=== PATIENT | female | born 1940 | race Caucasian/White ===

== ENCOUNTER 2017-10-30 14:05 | Emergency (ER) | payer OTHER, MEDICARE ==
[~2017-10-30] VITALS: Ht 165.1 cm; Wt 66.2 kg
[2017-10-30] MEDS ORDERED: PRINIVIL5 M1 PO (14:36)
[2017-10-30] MEDS ORDERED: SIMVASTATIN20 M2 PO (14:36)
[2017-10-30] MEDS ORDERED: TOPROL XL50 M1 PO (14:36)
[2017-10-30] MEDS ORDERED: CLARITIN10 M1 PO (14:37)
--- NOTE | 2017-10-30 15:07 | ED SYNCOPE COMPLAINT ---
History of Present Illness General Chief Complaint: Syncope and Near-Syncope Stated Complaint: BIBA FOR NEAR SYNCOPAL EPISODE Source: patient Exam Limitations: no limitations Allergies Coded Allergies: No Known Allergies (10/30/17) Reconcile Medications Lisinopril (Prinivil) (Unknown Strength) TABLET (Unknown Dose) PO DAILY HEART (Reported) Loratadine (Claritin) 10 MG TABLET 1 TAB PO DAILY ALLERGIES (Reported) Metoprolol Succ XL (Toprol Xl) 50 MG TAB 1 TAB PO DAILY HEART (Reported) Simvastatin (Simvastatin*) (Unknown Strength) TABLET (Unknown Dose) PO QPM CHOLESTEROL (Reported) Triage Note: 77/F BIBA FROM [facility] AFTER PT HAD A NEAR SYNCOPAL EPISODE 30 MINUTES PRIOR TO ARRIVAL. PT ALERT AND ORIENTED TO PERSON, PLACE AND TIME. REPORTS THAT PT'S STOMACH WAS LITTLE BIT CRAMPING AND STATES "I FELT OOZY" WHILE ON SITTING POSITION AND NEXT THING I KNOW WAS "I FAINTED." DENIES HAVING DIZZINESS AT THIS TIME. DENIES CHEST PAIN. DIFFICULTY BREATHING. DENIES GI/ SYMPTOMS. ORTHOSTATIC B/P POSITIVE. DROPP IN SBP FROM SITTING TO STANDING POSITION, BUT DIDNOT C/O DIZZINESS DURING CHANGE OF POSITION. AWAITING EVAL. Triage Nurses Notes Reviewed? yes Timing: single episode today Precipitating Factors: lightheadedness Loss of Consciousness: brief (seconds) HPI: 77-year-old female with history of hypertension brought in by ambulance to emergency department for syncopal episode while at [facility]. Patient states that earlier this morning she had intermittent generalized abdominal cramping with urge to have a bowel movement. Patient states that she had a bowel movement and felt fine. She went to [facility] and when she was kneeling during the service she felt as though she is going to pass out with associated dizziness. Patient states that she sat down and then passed out for a few seconds, she did not fall down or hit her head. Patient states the currently she feels in her usual state of health. Patient denies headache, visual changes, chest pain, dyspnea, abdominal pain, nausea, vomiting, paresthesias. (Carmen GRANGER,Magnolia Lerner) Vital Signs & Intake/Output Vital Signs & Intake/Output Vital Signs Date Time Temp Pulse Resp B/P B/P Pulse O2 O2 Flow FiO2 Mean Ox Delivery Rate 10/30 1736 98.3 56 18 165/77 97 Room Air 10/30 1545 98.0 56 18 155/74 99 Room Air 10/30 1419 98.1 71 18 170/84 97 Room Air (Sharon WONG,Ben Sanches) Past History Travel History Traveled to [place] past 21 day No Medical History Any Pertinent Medical History? see below for history Cardiovascular: hypertension Surgical History Surgical History: non-contributory Psychosocial History What is your primary language Italian Tobacco Use: Never used ETOH Use: occasional use Illicit Drug Use: denies illicit drug use Family History Hx Contributory? No (Magnolia Olivas) Review of Systems Review of Systems Constitutional: Reports: no symptoms. EENTM: Reports: no symptoms. Respiratory: Reports: no symptoms. Cardiovascular: Reports: see HPI. GI: Reports: see HPI. Genitourinary: Reports: no symptoms. Musculoskeletal: Reports: no symptoms. Skin: Reports: no symptoms. Neurological/Psychological: Reports: see HPI. All Other Systems: Reviewed and Negative (Magnolia Olivas) Physical Exam Physical Exam General Appearance: well developed/nourished, no apparent distress, alert, awake Head: atraumatic, normal appearance Eyes: Bilateral: normal appearance. Ears, Nose, Throat: hearing grossly normal Neck: normal inspection, supple, full range of motion Respiratory: normal breath sounds, no respiratory distress, lungs clear Cardiovascular: regular rate/rhythm Gastrointestinal: normal bowel sounds, soft, non-tender, no organomegaly Back: normal inspection, normal range of motion Extremities: normal inspection, normal range of motion Psychiatric: awake, alert, oriented x 3 Cranial Nerves: normal hearing, normal speech, PERRL, CN II-XII INTACT Coordination/Gait: normal finger to nose, normal gait Motor/Sensory: no motor/sensory deficits Skin: intact, normal color, warm/dry Core Measures ACS in differential dx? Yes CVA/TIA Diagnosis: No Sepsis Present: No Sepsis Focused Exam Completed? No (Magnolia Olivas) Progress Differential Diagnosis: AMI, drug induced syncope, hyperventilation, orthostatic syncope, other valvular disease, pericardial tamponade, pulmonary embolus, subarachnoid hem., TIA/CVA Initial ED EKG: sinus rhythm @57bpm (Magnolia Olivas) Plan of Care: Orders Procedure Date/time Status TROPONIN LEVEL 10/30 1507 Complete COMPREHENSIVE METABOLIC PANEL 10/30 1507 Complete CBC WITHOUT DIFFERENTIAL 10/30 1507 Complete EKG 10/30 1507 Active Laboratory Tests 10/30/17 1517: Anion Gap 11, Estimated GFR 54 L, BUN/Creatinine Ratio 25.0, Glucose 125 H, Calcium 10.1, Total Bilirubin 1.0, AST 22, ALT 26, Alkaline Phosphatase 48, Troponin I < 0.01, Total Protein 7.3, Albumin 4.2, Globulin 3.1, Albumin/ Globulin Ratio 1.4, CBC w Diff NO MAN DIFF REQ, RBC 4.59, MCV 91.1, MCH 29.6, MCHC 32.5 L, RDW 13.7, MPV 7.0 L, Gran % 76.0 H, Lymphocytes % 15.6 L, Monocytes % 5.3, Eosinophils % 2.8, Basophils % 0.3, Absolute Granulocytes 5.3, Absolute Lymphocytes 1.1 L, Absolute Monocytes 0.4, Absolute Eosinophils 0.2, Absolute Basophils 0 EKG is in sinus rhythm, no acute ischemic changes. Patient's blood work is within normal limits. Troponin negative, no anemia. Patient had no chest pain during episode or during today's emergency department visit. Patient is neurologically intact, currently feels her usual self. The patient was seen and evaluated by Dr. Herrera. Patient was given a referral for a reheater helper to follow up with outpatient due to her age however there is low suspicion for acute cardiac related event today. Patient feels ready to go home at this time she was given strict return precautions. The patient agrees with the plan of care. Dr. Herrera agrees with this plan. (Carmen GRANGER,Magnolia Lerner) (Sharon WONG,Ben Sanches) Departure Departure Disposition: HOME OR SELF CARE Condition: Stable Clinical Impression Primary Impression: Syncope Qualifiers: Syncope type: unspecified Qualified Code: R55 - Syncope and collapse Referrals: Woody WONG,Jessica (PCP/Family) Philip Hernadez MD Additional Instructions: You were given a referral for a reheater helper to follow up with. Continue to take your blood pressure medication as prescribed. Return with any worsening symptoms or concerns such as chest pain, abdominal pain, feeling as though he may pass out, further episodes of passing out or fainting. Please note that there might be incidental findings in your evaluation that are unrelated to the current emergency department visit. Please notify your primary care doctor about this emergency department visit in order to obtain and review all of the testing performed so that these incidental findings can be monitored as needed. If you had an x-ray performed, please understand that some fractures may not be seen on the initial set of x-rays. If your symptoms persist you might need a repeat set of x-rays to check for such a fracture. If you had a laceration evaluated, please understand that foreign bodies such as glass or wood may not be visible to the naked eye or on plain x-rays. If the wound becomes red, swollen, increasingly more painful or if there is any drainage from the wound, please have it reevaluated by a physician for the possibility of a retained foreign body. If you're unable to follow up as outlined in the discharge instructions please return to the emergency department. Thank you for choosing the [facility] Emergency Department for your care. It was a pleasure to serve you today. Departure Forms: Customer Survey General Discharge Information (Carmen GRANGER,Magnolia Lerner) PA/[employer] Co-Sign Statement Statement: ED Attending supervision documentation- [X] I saw and evaluated the patient. I have also reviewed all the pertinent lab results and diagnostic results. I agree with the findings and the plan of care as documented in the PA's/[employer]'s documentation. Patient presents for evaluation of a syncopal episode while at [facility]. Patient states she felt the episode coming upon her and tried to sit down but then passed out. Physical examination reveals nonfocal neurologic examination and unremarkable heart and lung exam. [] I have reviewed the ED Record and agree with the PA's/[employer]'s documentation. [] Additions or exceptions (if any) to the PAs/[employer]'s note and plan are summarized below: [] (Sharon WONG,Ben Sanches)
[2017-10-30 15:26] LABS: ABSOLUTE BASOPHIL COUNT 0 /CUMM (0.0-0.2); ABSOLUTE EOSINOPHIL COUNT 0.2 /CUMM (0.0-0.7); ABSOLUTE GRANULOCYTE CT 5.3 /CUMM (1.4-6.5); ABSOLUTE LYMPH COUNT 1.1 /CUMM (1.2-3.4); ABSOLUTE MONOCYTE COUNT 0.4 /CUMM (0.10-0.60); BASOPHIL % 0.3 % (0.0-2.0); EOSINOPHIL % 2.8 % (0-5); HEMATOCRIT 41.8 % (37-47); MEAN CORPUSCULAR HGB 29.6 PG (27.0-31.0); MEAN CORPUSCULAR HGB CONC 32.5 G/DL (33.0-37.0); MEAN CORPUSCULAR VOLUME 91.1 FL (81.0-99.0); PLATELET COUNT 285 /CUMM (130-400); RBC DISTRIBUTION WIDTH 13.7 % (11.5-14.5); RED BLOOD CELL CT 4.59 /CUMM (4.20-5.40)
[2017-10-30 17:36] VITALS: BP 165/77
== END 2017-10-30 17:39 ==
LOC: ERH 14:05
PROVIDERS: Physician Assistant
DX: R55 Syncope and collapse (principal); I10 Essential (primary) hypertension; R10.84 Generalized abdominal pain; R42 Dizziness and giddiness
CPT/HCPCS: 93005; 93010